=== PATIENT | male | born 1980 | race Caucasian/White ===

== ENCOUNTER 2017-11-30 20:15 | Emergency (ER) | payer OTHER ==
[~2017-11-30] VITALS: Ht 188 cm; Wt 100.0 kg
[2017-11-30 20:18] VITALS: BP 163/103
[2017-11-30] MEDS ORDERED: BUPIVACAINE 0.25% ONE (20:51)
[2017-11-30] MEDS ORDERED: BUPIVACAINE/PF-EPI 0.5% 1:200K INFIL ONE (21:00)
[2017-11-30] MEDS ORDERED: BACITRACIN ZINC OINT 500U/GM, 0.9 GM ONE (21:52)
== END 2017-11-30 22:25 | disposition home or self-care (01) ==
LOC: ED 21:50
DX: S92.421B Displaced fracture of distal phalanx of right great toe, initial encounter for open fracture (principal); W20.8XXA Other cause of strike by thrown, projected or falling object, initial encounter; Y93.89 Activity, other specified; Y99.8 Other external cause status; Y92.89 Other specified places as the place of occurrence of the external cause
CPT/HCPCS: 99284

== ENCOUNTER 2018-09-09 05:45 | Day surgery (SDC) | payer OTHER ==
[~2018-09-09] VITALS: Ht 188 cm; Wt 95.1 kg
[2018-09-09] MEDS ORDERED: LACTATED RINGERS 1,000 ML IV SCH (06:17)
[2018-09-09] MEDS ORDERED: LIDOCAINE 1%-EPI 1:100K, 30ML ONE (06:19)
[2018-09-09] MEDS ORDERED: BACITRACIN ZINC OINT 500U/GM, 0.9 GM ONE ×2 (06:19→06:20)
[2018-09-09] MEDS ORDERED: THROMBIN 5,000 UNIT VIAL TP ONE (06:19)
[2018-09-09] MEDS ORDERED: OXYMETAZOLINE NASAL SPRAY 0.05%, 15ML ONE ×2 (06:19)
[2018-09-09 06:41] VITALS: BP 148/90
[2018-09-09] MEDS ORDERED: NONE PER PT (06:41)
[2018-09-09] MEDS ORDERED: FENTANYL PF 250 MCG/5ML ONE (07:00)
[2018-09-09] MEDS ORDERED: MIDAZOLAM 1 MG/ML, 2ML ONE (07:00)
[2018-09-09] MEDS ORDERED: ROCURONIUM 10MG/ML,5ML ONE (07:01)
[2018-09-09] MEDS ORDERED: PROPOFOL 10 MG/ML, 20ML ONE (07:01)
[2018-09-09] MEDS ORDERED: BUPIVACAINE/PF-EPI 0.5% 1:200K ONE (07:21)
[2018-09-09] MEDS ORDERED: CEFAZOLIN 1,000 MG ONE (07:24)
[2018-09-09] MEDS ORDERED: DEXAMETHASONE 4 MG/ML, 1ML ONE (07:43)
[2018-09-09] MEDS ORDERED: PROMETHAZINE 25 MG/ML, 1ML IV PRN (08:30)
[2018-09-09] MEDS ORDERED: LABETALOL 5MG/ML, 20ML IV PRN (08:30)
[2018-09-09] MEDS ORDERED: FENTANYL PF 100 MCG/2ML IV PRN (08:30)
[2018-09-09] MEDS ORDERED: ONDANSETRON 2MG/ML, 2ML IV PRN (08:30)
[2018-09-09] MEDS ORDERED: OXYcodone 5 MG/5 ML ORAL.SOL UDC PO PRN (08:30)
[2018-09-09] MEDS ORDERED: ACETAMINOPHEN 325 MG TABLET PO PRN (08:30)
[2018-09-09] MEDS ORDERED: MEPERIDINE/PF 25MG/0.5ML IVPush PRN (08:30)
[2018-09-09] MEDS ORDERED: hydrALAzine 20 MG/ML, 1ML IV PRN (08:30)
[2018-09-09] MEDS ORDERED: ONDANSETRON 2MG/ML, 2ML ONE (09:13)
[2018-09-09] MEDS ORDERED: PROMETHAZINE 25 MG/ML, 1ML ONE (09:56)
[2018-09-09] MEDS ORDERED: HYDROmorphone 1 MG/ML, 1ML ONE (09:57)
[2018-09-09] MEDS ORDERED: OXYcodone 5 MG/5 ML ORAL.SOL UDC ONE (09:57)
[2018-09-09] MEDS: HYDROmorphone 2 MG/ML, 1ML IVPush PRN ×2 (10:02→10:34)
[2018-09-09] MEDS ORDERED: hydrALAzine 20 MG/ML, 1ML ONE (10:16)
== END 2018-09-09 12:05 | disposition home or self-care (01) ==
LOC: OUT 05:45
PROVIDERS: ATTEND Specialist
DX: J34.2 Deviated nasal septum (principal); J34.3 Hypertrophy of nasal turbinates; M95.0 Acquired deformity of nose; J31.0 Chronic rhinitis; J34.89 Other specified disorders of nose and nasal sinuses
CPT/HCPCS: 30140; 30400; 30520; J0360; J0690; J1100; J1170; J2250; J2405; J2550; J2704; J3010; J3490; J7120